=== PATIENT | male | born 1975 | race Caucasian/White ===

== ENCOUNTER 2016-02-28 17:48 | Emergency (ER) | payer SELFPAY ==
[2016-02-29] MEDS ORDERED: CEFTRIAXONE 250 MG VIAL ONE (02:46)
== END 2016-02-29 03:23 | disposition home or self-care (01) ==
LOC: ER 17:48
DX: Z20.2 Contact with and (suspected) exposure to infections with a predominantly sexual mode of transmission (principal)
CPT/HCPCS: 81001; 87491; 87591; 96372